=== PATIENT | male | born 1975 ===

== ENCOUNTER 2019-08-08 20:20 | Emergency (ER) | payer MEDICARE, MEDICAID ==
[2019-08-08] MEDS ORDERED: Lidocaine 2% VISCOUS* 15 ML UDC PO ONE (21:02)
[2019-08-08] MEDS ORDERED: Azithromycin TAB* 250 MG PO ONE (21:02)
--- NOTE | 2019-08-08 21:14 | ED ---
Throat Pain/Nasal Congestion - HPI Summary HPI Summary: Patient complains of chills, sore throat, productive cough, lightheadedness 2 days. Also states that his roommate found patient in the bathroom last night. Patient does not remember event nor did he get details from roommate. Patient states he has no pain from possible fall other than a small bump on the backside of his head. Denies CALDWELL, N/V, altered mental status, dizziness, photophobia, neck pain, fever, CP, SOB, N/V/D, abdominal pain, change in urine, change in BM. Patient ambulatory, alert and oriented. Medical history is none. Denies EtOH or recreational drug use. - History of Current Complaint Chief Complaint: EDFall Time Seen by Provider: 08/08/19 20:36 Hx Obtained From: Patient Onset/Duration: Gradual Onset, Lasting Days Severity: Moderate Associated Signs And Symptoms: Positive: Negative Cough: Productive - Allergies/Home Medications Allergies/Adverse Reactions: Allergies Allergy/AdvReac Type Severity Reaction Status Date / Time bupropion [From Wellbutrin] Allergy Hives Verified 08/08/19 20:31 Penicillins Allergy Hives Verified 08/08/19 20:31 Home Medications: Home Medications Azithromycin 250 mg PO DAILY 5 Days #6 tablet 08/08/19 [Rx] Lidocaine 2% VISCOUS* [Xylocaine 2% Viscous*] 15 ml SWISH SPIT Q6H PRN #1 btl [Rx] PMH/Surg Hx/FS Hx/Imm Hx Endocrine/Hematology History: Denies: Hx Anticoagulant Therapy Cardiovascular History: Denies: Hx Pacemaker/ICD History: Denies: Hx Dialysis Sensory History: Denies: Hx Eye Prosthesis Opthamlomology History: Denies: Hx Legally Blind EENT History: Denies: Hx Deafness Neurological History: Denies: Hx Dementia Infectious Disease History: No Infectious Disease History: Denies: Traveled Outside the [place] in Last 30 Days - Family History Known Family History: Positive: Non-Contributory - Social History Alcohol Use: None Substance Use Type: Reports: Excessive Caffeine Smoking Status (MU): Never Smoked Tobacco Review of Systems Constitutional: Negative Positive: Blurred Vision Positive: Sore Throat Cardiovascular: Negative Positive: Cough Gastrointestinal: Negative Genitourinary: Negative Musculoskeletal: Negative Skin: Negative Neurological/Mental Status: Negative Psychological: Normal All Other Systems Reviewed And Are Negative: Yes Physical Exam Triage Information Reviewed: Yes Vital Signs On Initial Exam: Initial Vitals Temp Pulse Resp BP Pulse Ox 98.6 F 100 16 170/83 99 08/08/19 20:26 08/08/19 20:26 08/08/19 20:26 08/08/19 20:26 08/08/19 20:26 Vital Signs Reviewed: Yes Appearance: Positive: Well-Appearing Skin: Positive: Warm Head/Face: Positive: Normal Head/Face Inspection Eyes: Positive: Normal ENT: Positive: Normal ENT inspection Neck: Positive: Supple Respiratory/Lung Sounds: Positive: Clear to Auscultation Cardiovascular: Positive: Normal Abdomen Description: Positive: Nontender Musculoskeletal: Positive: Normal Neurological: Positive: Normal Psychiatric: Positive: Normal AVPU Assessment: Alert - Karin Coma Scale Best Eye Response: 4 - Spontaneous Best Motor Response: 6 - Obeys Commands Best Verbal Response: 5 - Oriented Coma Scale Total: 15 Procedures - Sedation Patient Received Moderate/Deep Sedation with Procedure: No Diagnostics - Vital Signs Vital Signs Temp Pulse Resp BP Pulse Ox 08/08/19 20:48 97 98 08/08/19 20:26 98.6 F 100 16 170/83 99 - Laboratory Lab Statement: Any lab studies that have been ordered have been reviewed, and results considered in the medical decision making process. EENT Course/Dx - Course Course Of Treatment: Patient complains of chills, sore throat, productive cough , lightheadedness 2 days. Also states that his roommate found patient in the bathroom last night. Patient does not remember event nor did he get details from roommate. Patient states he has no pain from possible fall other than a small bump on the backside of his head. Denies CALDWELL, N/V, altered mental status, dizziness, photophobia, neck pain, fever, CP, SOB, N/V/D, abdominal pain, change in urine, change in BM. Patient ambulatory, alert and oriented. Medical history is none. No history of recent travel or known Covid 19 exposure. Denies EtOH or recreational drug use. Vital signs within normal limits. Patient tested for Covid. - Diagnoses Provider Diagnoses: Fall, Pharyngitis Discharge ED - Sign-Out/Discharge Documenting (check all that apply): Patient Departure - Discharge Plan Condition: Stable Disposition: HOME Prescriptions: Azithromycin 250 mg PO DAILY 5 Days #6 tablet Lidocaine 2% VISCOUS* [Xylocaine 2% Viscous*] 15 ml SWISH SPIT Q6H PRN #1 btl PRN Reason: Pain - Moderate Patient Education Materials: Pharyngitis (ED) Referrals: No Primary Care Phys,NOPCP [Primary Care Provider] - Additional Instructions: [id number] until you are free of symptoms to avoid infecting others. Use viscous lidocaine gel in throat for 2 minutes at a time and then spit. You may use lidocaine every 6 hours for throat pain. Alternate ibuprofen 600 mg with Tylenol 650 mg every 3 hours for throat pain. Take antibiotics as directed for sore throat. Follow-up with primary care. Return to the ED for any new or worsening symptoms. - Billing Disposition and Condition Condition: STABLE Disposition: Home
[2019-08-08 21:45] VITALS: BP 148/91
== END 2019-08-08 21:42 | disposition home or self-care (01) ==
LOC: ED 20:20
DX: Z03.818 Encounter for observation for suspected exposure to other biological agents ruled out (principal); J02.9 Acute pharyngitis, unspecified; R05 Cough; R42 Dizziness and giddiness; R68.83 Chills (without fever); W19.XXXA Unspecified fall, initial encounter; Y92.002 Bathroom of unspecified non-institutional (private) residence as the place of occurrence of the external cause; Z88.0 Allergy status to penicillin; Z88.8 Allergy status to other drugs, medicaments and biological substances
CPT/HCPCS: 99282; A9270-GY; U0002